=== PATIENT | male | born 1975 | race Caucasian/White ===

== ENCOUNTER → 2020-08-04 | Outpatient (CLI) | payer OTHER ==
[~2020-08-04] MED LIST: FLONASE 0.05%50 MCG NS; OMEGA 3-6-9 CO1 EACH PO
== END ==
LOC: RAD 12:18
PROVIDERS: ATTEND Internal Medicine
DX: Z13.6 Encounter for screening for cardiovascular disorders (principal); E78.00 Pure hypercholesterolemia, unspecified; I25.10 Atherosclerotic heart disease of native coronary artery without angina pectoris

== ENCOUNTER → 2020-08-08 | Outpatient (CLI) | payer OTHER | LOC: SJCVCIMAG 08:56 | PROVIDERS: ATTEND Internal Medicine | DX: I25.10 Atherosclerotic heart disease of native coronary artery without angina pectoris (principal); I48.0 Paroxysmal atrial fibrillation; R93.1 Abnormal findings on diagnostic imaging of heart and coronary circulation; E78.5 Hyperlipidemia, unspecified ==